=== PATIENT | female | born 2005 | race Caucasian/White ===

== ENCOUNTER 2023-10-11 17:48 | Inpatient (IN) | payer OTHER, SELFPAY ==
[2023-10-11] VITALS (9 sets, daily range): BP systolic 109–120; BP diastolic 64–82; PULSE 59–75; TEMP 36.1
[2023-10-11] MEDS: DINOPROSTONE 10 MG VAG INSERT.ER VAGINAL (18:44)
[2023-10-11 18:45] LABS: Hematocrit 31.2 % (36.0-48.0); Hemoglobin 11.4 g/dL (12.0-16.0); Mean Corpuscular HGB Conc 36.5 g/dL (29.9-35.2); Mean Corpuscular Hemoglobin 33.5 pg (26.7-34.0); Mean Corpuscular Volume 91.8 fL (81.0-99.0); Mean Platelet Volume 10.1 fL (9.5-13.5); Platelet Count 217 10^3/uL (150-450); Red Cell Distribution Width 12.4 % (11.0-15.0); White Blood Count 6.7 10^3/uL (4.0-11.0)
[2023-10-11 18:57] LABS: Amphetamine Screen Urine NEGATIVE (NEGATIVE); Barbiturates Screen Urine NEGATIVE (NEGATIVE); Benzodiazepines Screen Urine NEGATIVE (NEGATIVE); Buprenorphine Screen Urine NEGATIVE (NEGATIVE); Cannabinoid Screen Urine POSITIVE (NEGATIVE); Cocaine Screen Urine NEGATIVE (NEGATIVE); Methadone Screen Urine NEGATIVE (NEGATIVE); Methamphetamines Screen Urine NEGATIVE (NEGATIVE); Opiate Screen Urine NEGATIVE (NEGATIVE); Oxycodone Screen Urine NEGATIVE (NEGATIVE); Phencyclidine Screen Urine NEGATIVE (NEGATIVE); Tricyclic Antidepressant Urine NEGATIVE (NEGATIVE)
--- NOTE | 2023-10-11 22:21 | P.OBHP_ITS ---
OB - H&P: HPI History of Present Illness Chief complaint: INDUCTION : 1 Para: 0 Gestational age based on last menstrual period: 41.0 Indications for induction: prolonged and other (post dates ) History of Present care: good care Ultrasounds: normal 1st trimester US and normal mid trimester US Labs Blood type: O (+) positive Rubella: immune RPR/VDLR: nonreactive GBS status: negative HBsAG: negative Review of Systems ROS Status of ROS: 10 or more systems reviewed and unremarkable except as noted in history and below Meds Home Medications and Allergies Home Medications ?Medication ?Instructions ?Recorded ?Confirmed ?Type No Known Home Medications 10/11/23 10/11/23 History Allergies Allergy/AdvReac Type Severity Reaction Status Date / Time No Known Drug Allergies Allergy Verified 10/11/23 18:10 Exam Constitutional Vital Signs, click to edit/add: Last Vital Signs Temp 97.0 F L 10/11/23 18:16 Pulse 75 10/11/23 21:48 BP 117/67 10/11/23 21:48 Common normals: no apparent distress, average body habitus, oriented x3, no rivers itations, healthy appearing, alert and well nourished Orientation/consciousness: Yes awake, Yes oriented to person, Yes oriented to place and Yes oriented to time HENMT Common normals: normocephalic Eye Common normals: EOMs intact bilaterally Neck & C-Spine Common normals: full ROM Lymph Lymphatic: no lymphadenopathy noted Chest Common normals: inspection of chest normal Respiratory Common normals: normal respiratory effort, no retractions, no use of accessory muscles, clear to auscultation bilaterally and percussion normal Cardio Common normals: regular rate and regular rhythm Rate: regular rate Rhythm: regular rhythm GI Common normals: Normal to inspection, nondistended, normoactive bowel sounds present Common normals: no CVA tenderness Back & Pelvis Common normals: no CVA tenderness Extremity Common normals: normal to inspection, full ROM, normal capillary refill, no joint enlargement, no clubbing, cyanosis or edema, no calf tenderness and no pedal edema Neuro Common normals: oriented x3 Sensorium/orientation: awake, alert, oriented to person, oriented to place and oriented to time Psych Common normals: mental status grossly normal, thought process normal, cooperative, affect normal, speech normal, activity/motor behavior normal, denies hallucinations, denies homicidal ideation and denies suicidal ideation Results Labs Labs: Short CBC 10/11/23 Range/Units 18:30 WBC 6.7 (4.0-11.0) 10^3/uL Hgb 11.4 L (12.0-16.0) g/dL Hct 31.2 L (36.0-48.0) % Plt Count 217 (150-450) 10^3/uL OB - A/P Assessment and Plan (1) Term : (2) Post-dates :
[2023-10-12] VITALS (55 sets, daily range): BP systolic 90–137; BP diastolic 47–87; PULSE 52–102; TEMP 35.7–36.8
[2023-10-12] MEDS: ZOLPIDEM TARTRATE 5 MG TABLET PO (01:12)
[2023-10-12] MEDS: LACTATED RINGER'S SOLUTION 1,000 ML 125 ML IV ×3 (04:00→11:15)
[2023-10-12] MEDS: ONDANSETRON PF 4 MG/2 ML VIAL IV (08:33)
[2023-10-12] MEDS: ROPIVACAINE HCL/PF 400 MG/200 ML PREMIX 6 MG EPIDURAL (09:47)
[2023-10-12] MEDS: LACTATED RINGER'S SOLUTION 1,000 ML 1000 ML IV (10:15)
[2023-10-12] MEDS: OXYTOCIN/0.9 % SODIUM CHLORIDE 10 UNITS/500 ML PLAST..BAG 6 UNIT IV (13:34)
[2023-10-12] MEDS: OXYTOCIN/0.9 % SODIUM CHLORIDE 20 UNITS/1,000 ML PLAST..BAG 125 UNIT IV (15:55)
[2023-10-12] MEDS: LIDOCAINE HCL 1% 200 MG/20 ML MDV INJ (15:57)
--- NOTE | 2023-10-12 17:20 | PM.OBPRCVD ---
Procedure Procedure: normal spontaneous vaginal delivery Intrapartal events: Sexually Transmitted Infection (treated chlamydia x3 ) Induction method: other (cervidil ) Delivery augmentation: rupture of membranes and pitocin Delivery monitor: external FHT and external uterine Route of delivery: Episiotomy Description: none L&D Laceration Description: periurethral - 1st degree and labial (bilateral ) Delivery repair: Vicryl Estimated blood loss (mL): 300 Anesthesia type: Epidural Disposition: no change Delivery date: 10/12/23 Gender: female presentation: vertex Placental delivery description: Spontaneous cord description: 3 Vessels heart rate - 1 minute: 100 bpm or Greater respiratory effort - 1 minute: Spontaneous/Strong Cry muscle tone - 1 minute: Active Movement reflex response - 1 minute: Prompt Response color - 1 minute: Pallor or Cyanosis total score - 1 minute: 8 heart rate - 5 minute: 100 bpm or Greater respiratory effort - 5 minute: Spontaneous/Strong Cry muscle tone - 5 minute: Active Movement reflex response - 5 minute: Prompt Response color - 5 minute: Bluish Hands or Feet total score - 5 minute: 9
[2023-10-12] MEDS: METHYLERGONOVINE MALEATE 0.2 MG/ML AMPULE 0.200000000000000011 MG IM (17:28)
[2023-10-12] MEDS: ACETAMINOPHEN 325 MG TABLET 650 MG PO (18:02)
[2023-10-12] MEDS: BENZOCAINE/MENTHOL 85 GRAM SPRAY BOTTLE 1 APPLIC TOPICAL (18:03)
[2023-10-12] MEDS: GLYCERIN/WITCH HAZEL PADS 1 PAD TOPICAL (18:03)
[2023-10-12] MEDS: IBUPROFEN 400 MG TABLET 800 MG PO (18:03)
[2023-10-13 01:40] VITALS: BP 110/55; PULSE 67; TEMP 36.6
--- NOTE | 2023-10-13 04:34 | PM.OBPN ---
OB - PN: Subj Subjective Patient comments: no complaints and pain well controlled status: doing well Exam Constitutional Vital Signs, click to edit/add: Last Vital Signs Temp 98 F 10/13/23 01:40 Pulse 67 10/13/23 01:40 Resp 16 10/13/23 01:40 BP 110/55 10/13/23 01:40 O2 Del Method Room Air 10/13/23 01:40 Documenting provider has reviewed patient's vital signs: yes Common normals: no apparent distress Respiratory Common normals: normal respiratory effort and clear to auscultation bilaterally Cardio Common normals: regular rate and regular rhythm GI Common normals: Normal to inspection, nondistended, normoactive bowel sounds present Extremity Common normals: no clubbing, cyanosis or edema and no calf tenderness OB - PN: A/P Assessment and Plan (1) Term : (2) Post-dates : Plan - Vaginal Delivery day: 1 Plan: routine care Time Spent with Patient Time: Total time spent is greater than 50% in coordination of care (as documented) at patient's floor/unit and/or counseling patient: Total time spent with greater than 50% in coordination of care (as documented) at patient's floor/unit and/or counseling patient: less than 15 minutes
[2023-10-13 06:08] LABS: Basophils Percent Auto 0.1 % (0.2-2.0); Eosinophils Percent Auto 0.1 % (0.9-7.0); Hematocrit 26.9 % (36.0-48.0); Hemoglobin 9.7 g/dL (12.0-16.0); Immature Granulocytes Abs Auto 0.01 10^3/uL (0.00-0.03); Immature Granulocytes Pct Auto 0.1 % (0.0-0.5); Lymphocytes Absolute Auto 0.8 10^3/uL (1.2-3.8); Lymphocytes Percent Auto 11.2 % (20.5-60.0); Mean Corpuscular HGB Conc 36.1 g/dL (29.9-35.2); Mean Corpuscular Hemoglobin 33.8 pg (26.7-34.0); Mean Corpuscular Volume 93.7 fL (81.0-99.0); Mean Platelet Volume 9.7 fL (9.5-13.5); Monocytes Absolute Auto 0.4 10^3/uL (0.3-0.8); Monocytes Percent Auto 6.4 % (1.7-12.0); Neutrophils Absolute Auto 5.5 10^3/uL (1.4-6.5); Neutrophils Percent Auto 82.1 % (43.0-75.0); Platelet Count 154 10^3/uL (150-450); Red Blood Count 2.87 10^6/uL (4.20-5.40); Red Cell Distribution Width 12.5 % (11.0-15.0); White Blood Count 6.7 10^3/uL (4.0-11.0)
[2023-10-13 08:30] VITALS: TEMP 36
[2023-10-13 08:31] VITALS: BP 113/63; PULSE 65
[2023-10-13] MEDS: DOCUSATE SODIUM 100 MG CAPSULE PO (08:36)
[2023-10-13] MEDS: FERROUS SULFATE 325 MG TABLET PO (08:36)
[2023-10-13] MEDS: IBUPROFEN 400 MG TABLET 800 MG PO ×2 (09:28→17:10)
[2023-10-13 17:10] VITALS: BP 119/83; PULSE 60
[2023-10-13 17:15] VITALS: TEMP 36.5
[2023-10-13] MEDS: MAGNESIUM HYDROXIDE 2,400 MG/10 ML ORAL.SUSP 2400 MG PO (18:13)
[2023-10-14 02:42] VITALS: BP 103/53; PULSE 55; TEMP 35.9
[2023-10-14] MEDS: IBUPROFEN 400 MG TABLET 800 MG PO ×2 (02:42→09:46)
--- NOTE | 2023-10-14 06:57 | P.OBPN_ITS ---
OB - PN: Subj Subjective Patient comments: no complaints and pain well controlled [place] status: doing well Exam Constitutional Vital Signs, click to edit/add: Last Vital Signs Temp 96.6 F L 10/14/23 02:42 Pulse 55 L 10/14/23 02:42 Resp 16 10/13/23 17:14 BP 103/53 10/14/23 02:42 O2 Del Method Room Air 10/13/23 17:14 Documenting provider has reviewed patient's vital signs: yes Common normals: no apparent distress Respiratory Common normals: normal respiratory effort and clear to auscultation bilaterally Cardio Common normals: regular rate and regular rhythm GI Common normals: Normal to inspection, nondistended, normoactive bowel sounds present Extremity Common normals: no clubbing, cyanosis or edema and no calf tenderness OB - PN: A/P Assessment and Plan (1) Term : (2) Post-dates : Plan - Vaginal Delivery day: 2 Plan: routine care, discharge home and follow up 6 weeks Time Spent with Patient Time: Total time spent is greater than 50% in coordination of care (as documented) at patient's floor/unit and/or counseling patient: Total time spent with greater than 50% in coordination of care (as documented) at patient's floor/unit and/or counseling patient: less than 15 minutes
[2023-10-14 07:57] VITALS: BP 113/80; PULSE 78
[2023-10-14] MEDS: DOCUSATE SODIUM 100 MG CAPSULE PO (08:00)
[2023-10-14] MEDS: GLYCERIN/WITCH HAZEL PADS 1 PAD TOPICAL (08:00)
[2023-10-14] MEDS: FERROUS SULFATE 325 MG TABLET PO (08:00)
[2023-10-14 08:04] VITALS: TEMP 36.6
--- NOTE | 2023-10-15 13:13 | SWNOTE1 ---
Note from 10/14/23 SW met with pt due to positive THC screen on admission. This is pt's first child. Pt lives at home by herself, her sister stay with her at times. She voices she has a good support system. Father of baby is involved. Pt has everything she needs at home for baby. She voiced she has been in contact with [facility] services. Pt voiced she has a good support system as well. SW addressed the positive THC drug screen. Pt voiced she used a disposable pen and she did it because it helped with stomach issues and helped with nausea. Pt does not have a medical marijuana card and does not plan on continuing use at home. SW advised pt that SW is mandated reported and has to make report to CPS. Pt voiced understanding. CINDY called report to [facility] CPS. HIPAA form filled out and send to Adrien[facility]. Nursing had no other concerns. Pt is appropriate with baby and provides proper care.
== END 2023-10-14 14:35 | disposition home or self-care (01) | DRG 560 ==
PROVIDERS: Admitting Provider Midwife; Visit Provider Midwife
DX: O48.0 Post-term pregnancy (principal); O99.324 Drug use complicating childbirth; Z3A.41 41 weeks gestation of pregnancy; Z37.0 Single live birth; O70.0 First degree perineal laceration during delivery; F12.90 Cannabis use, unspecified, uncomplicated; Z86.19 Personal history of other infectious and parasitic diseases; Z87.440 Personal history of urinary (tract) infections
CPT/HCPCS: 36415; 51702; 59050; 59410; 80307; 85025; 85027; 86850; 86900; 86901; 96365; 96366; 96372; 96375; 96376; J2210; J2405; J2795